=== PATIENT | female | born 1960 | race Caucasian/White ===

== ENCOUNTER 2024-03-09 17:08 | Emergency (ER) | payer OTHER, SELFPAY ==
[2024-03-09 17:11] VITALS: BP 160/98; BMI 31.9
--- NOTE | 2024-03-09 18:01 | ED.GENMED ---
History of Present Illness
General
Chief Complaint: Extremity Pain (non-traumatic)
Time Seen by Provider: 03/09/24 17:25
Travel History
Have you had any contact with someone who has COVID-19?: No
Do you have any symptoms of coronavirus? Fever > 100 degrees, chills, cough, shortness of breath, sore throat, loss of taste or smell, muscle aches, or headache?: No
History of Present Illness
History of Present Illness:
63-year-old female presents the emergency department for evaluation of right posterior knee pain ongoing for the past 1 to 2 weeks but gradually worsening throughout the day today. She is unable to bear weight. Denies any falls or trauma. Denies
any hip pain.
Past History
Past History
ED Past Medical History: HTN, Hypothyroidism and Other (Q fever, PE)
ED Past Surgical History: Other (thyroidectomy)
Social History
Tobacco: Non-smoker
Personal:
Living: with family
Review of Systems
Review of Systems
Allergies reviewed?: Yes
All Other Systems: ROS reviewed and negative except as documented in HPI and ROS
Phy Exam
Physical Exam
Physical Exam:
GEN: Well appearing, NAD, WDWN
HEENT: Oral mucosa moist, no scleral icterus
Cardiac: Regular rate
Lung: No respiratory distress, no tachypnea
MSK: No gross deformity or injuries. No obvious right knee effusion. Range of motion is limited secondary to pain, no pain with passive range of motion. No erythema or open wounds.
Skin: Good color, no pallor or jaundice, no rashes
Neuro: AO x3, moves all extremities freely
Psych: Calm, cooperative
Course
Orders/Labs/Results
Orders:
Orders
03/09/24 17:13
Knee, Right 4 or More Views [CR Knee- Right 4 Or More View*] Urgent
Comment:
Reason For Exam: pain
03/09/24 18:00
Crutches-Treatment ONCE
Knee Immobilizer Right-Treatme ONCE
Ketorolac [Toradol] 30 mg IM NOW STA
Vital Signs
Initial and Last Documented VS:
Initial Vital Signs
Temp Pulse Resp BP Pulse Ox
99.2 F 96 18 160/98 99
03/09/24 17:11 03/09/24 17:11 03/09/24 17:11 03/09/24 17:11 03/09/24 17:11
Last Documented Vital Signs
Temp Pulse Resp BP Pulse Ox
99.2 F 96 18 160/98 99
03/09/24 17:11 03/09/24 17:11 03/09/24 17:11 03/09/24 17:11 03/09/24 17:11
MDM/Problems Addressed
MDM/Problems Addressed:
X-rays of the right knee are unremarkable. No clinical signs or symptoms concerning for septic arthritis. Will start the patient on high-dose NSAIDs, knee immobilizer and crutches provided due to significant difficulty with ambulation. Advised
outpatient orthopedic follow-up
*Critical Care Note
Total Time (30-74mins, 75-104mins- exclusive of procedures): Not Applicable
ED Attending Note
-
Portions of this chart may have been created with voice recognition software.� Occasional wrong word or��sound alike� substitutions may have occurred due to the inherent limitations of voice recognition software.
Discharge Plan
Departure
Patient Disposition: Home (Routine Discharge)
Date of Disposition: 03/09/24
Time of Disposition: 18:01
Patient with high blood pressure during this ER visit?: No
Discharge Problem:
Acute pain of right knee
Prescriptions:
New
diclofenac sodium 75 mg tablet,delayed release (DR/EC)
75 mg PO BID Qty: 20 0RF
No Action
hydrocodone-acetaminophen 1 TABLET tablet
1 tab PO Q4HPRN PRN (Reason: pain)
hydroxychloroquine 200 MG tablet
1 tab PO BID
albuterol sulfate 1 PUFF HFA aerosol inhaler
2 puff inhalation R Q4HPRN PRN (Reason: SOB)
nitrofurantoin monohyd/m-cryst 100 MG capsule
100 mg PO BID
oxycodone [OxyContin] 10 MG tablet,oral only,ext.rel.12 hr
30 mg PO DAILY
Cytamel
1 tab PO BID
Tirosint
1 tab PO DAILY
prednisone 10 MG tablet
10 mg PO .TAPER Qty: 30 0RF
Rx Instructions:
Take 40mg daily x3days, 30mg daily x3days,
20mg daily x3days, 10mg daily x3days.
Referrals:
Dawson Deluca MD [Active] - Call in 1-3 days for appt
Interventions
Interventions:
*Risk Screen - Suicide Last Done: 03/09/24 17:11
*General Assessment Last Done: 03/09/24 17:36
*Neglect/Abuse Screening Last Done: 03/09/24 17:11
ED- Fall Risk Assessment Last Done: 03/09/24 17:11
*ED COVID-19 Vaccine History Last Done: 03/09/24 17:35
*Nursing Disposition Last Done: 03/09/24 18:07
ED-Skin Assessment Last Done: 03/09/24 17:35
ED-Peripheral Vascular Assessment Last Done: 03/09/24 17:34
ED-Musculoskeletal Assessment Last Done: 03/09/24 17:34
Discharge Date and Time
Discharge Date/Time: 03/09/24 18:33
Print Language: LAO
[2024-03-09] MEDS: TORADOL 30 MG IM (18:12)
== END 2024-03-09 18:33 | disposition home or self-care (01) ==
LOC: EMR 17:08
PROVIDERS: EMERGENCY PHYSICIAN Emergency Medicine; FAMILY PHYSICIAN Family Medicine
DX: M25.561 Pain in right knee (principal); Z88.2 Allergy status to sulfonamides; Z88.8 Allergy status to other drugs, medicaments and biological substances
CPT/HCPCS: 99284; 29505; 96372; 73564

== ENCOUNTER → 2024-05-04 07:47 | Outpatient (REF) | payer OTHER, SELFPAY | LOC: HWRAD 07:47 | PROVIDERS: ATTENDING PHYSICIAN Family Medicine | DX: I70.90 Unspecified atherosclerosis (principal) | CPT/HCPCS: 93880 ==